=== PATIENT | female | born 1970 | race Caucasian/White ===

== ENCOUNTER 2018-03-29 07:45 | Outpatient (CLI) | payer OTHER ==
--- NOTE | 2018-03-29 12:17 | MRI ---
MRI LEFT KNEE WITHOUT CONTRAST: Date: 03/29/18 HISTORY: Mass of the tibia. COMPARISON: None. FINDINGS: Exam was performed noncontrast as an IV was unable to be started. This was not done per standard inte rnal derangement protocol and is a noncontrast mass protocol. The menisci appear to be intact, as well as the anterior cruciate ligament and posterior cruciate lig ament. The quadriceps tendon and patellar tendon are intact, as well as the patella. There is mild melendrez perolateral Hoffa's fat pad edema. There is a mass in the metaphysis of the tibia, extension to the epiphysis on articular surface. This abuts the medial and lateral compartment articular surface extending to the tibial spines. The mass measures approximately 3.8 x 4.4 x 7.1 cm. The margin is lobular. There does appear to be severe rosalva ical thinning posteriorly and some periosteal edema which may represent microscopic expansion through the cortex. IMPRESSION: 1. 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 Examination is limited as t his was a noncontrast exam as IV was unable to be started. Orthopedic consultation is recommended. Ot her malignant processes such as lymphoma cannot be totally excluded, although felt less likely. Metas tatic disease is also a possibility. 2. Mild superolateral Hoffa's fat pad edema can be seen with patellar maltracking. 3. Curvilinear T2 hyperintense focus within the fibular head, concerning for a healing fracture. POS: [facility]
--- NOTE | 2018-03-29 15:25 | RAD ---
FOUR VIEWS LEFT KNEE: Date: 03-29-18 Comparison: None. History: Knee pain, mass seen on recent MRI. FINDINGS: There is a permeative lytic lesion associated with the proximal left tibia with a wide zone of transi tion, extending to involve the subcortical bone. This lesion measures at least 6.6 x 4.3 cm. IMPRESSION: Permeative lytic lesion within proximal left tibia, nonspecific. Correlation with MRI 03-29-18 recomme nded. Possible etiologies for this lesion include giant cell tumor, metastatic disease, and lymphoma. POS: [facility]
== END 2018-03-29 07:46 | disposition home or self-care (01) ==
LOC: MRI 07:45
PROVIDERS: ATTEND Family Medicine
DX: M25.562 Pain in left knee (principal); M89.9 Disorder of bone, unspecified; R60.0 Localized edema; R93.7 Abnormal findings on diagnostic imaging of other parts of musculoskeletal system

== ENCOUNTER 2018-04-06 12:57 | Outpatient (CLI) | payer OTHER ==
--- NOTE | 2018-04-06 15:45 | PET ---
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 Reference made to prior MRI dated 03/29/18. RADIOPHARMACEUTICAL: [id number] 13.2 mCi. FINDINGS: Appropriate biodistribution of radiotracer activity is present. There is abnormal hypermetabolic activity with regard to the mass of the proximal tibia with maximum SUV of approximately 14.3. There is no scintigraphic evidence to indicate metastatic disease. Nondiagnostic attenuation correction and noncontrast CT examination was performed. There is no eviden ce of pulmonary mass or pleural fluid. No acute process of the unenhanced abdomen evident. There is m ild colonic diverticulosis. IMPRESSION: Hypermetabolic mass of the proximal tibia, correlating with MRI abnormality. There is no scintigraphi c evidence of metastatic disease. POS: [facility]
== END 2018-04-06 12:58 | disposition home or self-care (01) ==
LOC: PET 12:57
PROVIDERS: ATTEND Family Medicine
DX: M89.8X6 Other specified disorders of bone, lower leg (principal); R22.42 Localized swelling, mass and lump, left lower limb
CPT/HCPCS: 78816; A9552

== ENCOUNTER 2024-07-29 08:21 | Outpatient (CLI) | payer OTHER | END 2024-07-29 08:22 | disposition home or self-care (01) | LOC: BICRAD 08:21 | PROVIDERS: ATTEND Family Medicine | DX: M54.50 Low back pain, unspecified (principal); M47.816 Spondylosis without myelopathy or radiculopathy, lumbar region | CPT/HCPCS: 72100 ==